=== PATIENT | female | born 1975 | race Two or more races ===

== ENCOUNTER 2019-11-24 09:30 | Outpatient (CLI) | payer BC | END 2019-11-24 23:59 | disposition home or self-care (01) | LOC: MSC 09:30 | PROVIDERS: ATTEND Internal Medicine | DX: K21.9 Gastro-esophageal reflux disease without esophagitis (principal); L40.50 Arthropathic psoriasis, unspecified; E03.9 Hypothyroidism, unspecified; F32.9 Major depressive disorder, single episode, unspecified; Z79.899 Other long term (current) drug therapy ==